=== PATIENT | male | born 1985 | race Caucasian/White ===

== ENCOUNTER 2018-06-25 07:05 | Emergency (ER) | payer BC, OTHER ==
[~2018-06-25] VITALS: Ht 180.3 cm; Wt 79.4 kg
--- NOTE | 2018-06-25 07:15 | NUR ---
Patient here for c/o flank pain. He is A/A/O x3.
[2018-06-25] MEDS ORDERED: HYDROMORPHONE 1 MG/1 ML DISP.SYRIN ONE (07:28)
[2018-06-25] MEDS ORDERED: IV NORMAL SALINE 1000 ML BAG IV ONE (07:30)
[2018-06-25] MEDS ORDERED: ONDANSETRON 4 MG/2 ML VIAL IV ONE (07:30)
[2018-06-25] MEDS ORDERED: HYDROMORPHONE 1 MG/1 ML DISP.SYRIN IV ONE (07:30)
--- NOTE | 2018-06-25 07:30 | NUR ---
Medication given as ordered. patient states pain has diinished. Denies nausea, states does not need nausea medicine at this time.
[2018-06-25 07:34] LABS: BASOPHILS % (AUTO) 0.6 % (0.0-2.0); EOSINOPHILS % (AUTO) 0.4 % (0.0-7.0); HEMATOCRIT 47.4 % (36.7-47.1); HEMOGLOBIN 16.5 g/dL (12.5-16.3); LYMPHOCYTES # (AUTO) 1.1 K/uL (20.0-40.0); LYMPHOCYTES % (AUTO) 15.7 % (20.5-51.5); MEAN CORPUSCULAR HEMOGLOBIN 32.3 uug (23.8-33.4); MEAN CORPUSCULAR HGB CONC 35 g/dL (32.5-36.3); MEAN CORPUSCULAR VOLUME 93.1 fL (73.0-96.2); MONOCYTES # (AUTO) 0.6 K/uL (2.0-10.0); MONOCYTES % (AUTO) 8.5 % (0.0-11.0); NEUTROPHILS # (AUTO) 5.4 K/uL (1.8-8.9); NEUTROPHILS % (AUTO) 74.8 % (38.5-71.5); PLATELET COUNT (AUTO) 221 K/uL (152-348); RED BLOOD CELL COUNT(AUTO) 5.09 MIL/uL (4.06-5.63); WHITE BLOOD COUNT (AUTO) 7.2 K/uL (3.6-10.2)
[2018-06-25 07:46] LABS: CREATININE 1.1 mg/dL (0.6-1.3); POTASSIUM 3.8 mmol/L (3.5-5.1)
[2018-06-25 07:52] LABS: BILIRUBIN,DIRECT 0.2 mg/dL (0.0-0.2); BILIRUBIN,TOTAL 0.6 mg/dL (0.2-1.0); TOTAL PROTEIN, SERUM 8.3 g/dL (6.4-8.2)
[2018-06-25] MEDS ORDERED: KETOROLAC TROMETHAMINE 30 MG INJ ONE (07:58)
[2018-06-25] MEDS ORDERED: KETOROLAC TROMETHAMINE 30 MG INJ IVP ONE (08:00)
--- NOTE | 2018-06-25 08:07 | NUR ---
Patient stated Pain has returned. Dr Morris was at bedside. Toradol given as ordered.
--- NOTE | 2018-06-25 08:57 | NUR ---
IV removed. Catheter intact and site benign. Pressure and 4x4 gauze applied to site. No bleeding noted.
--- NOTE | 2018-06-25 08:59 | NUR ---
DC, Rx and follow up instructions given and explained to patient who states she understands all instructions..
--- NOTE | 2018-06-25 09:00 | NUR ---
Patient states pain has diminished.
[2018-06-25 09:09] VITALS: BP 118/68
== END 2018-06-25 09:05 | disposition home or self-care (01) ==
LOC: ER 07:05
DX: N20.0 Calculus of kidney (principal); N13.30 Unspecified hydronephrosis
CPT/HCPCS: 36415; 74176; 80048; 80076; 83690; 84484; 85025; 85730; 96361; 96374; 96375; 99284; J1170; J1885; 70030-TC; A4663; J7030